=== PATIENT | female | born 2000 | race Caucasian/White ===

== ENCOUNTER 2018-08-21 20:40 | Emergency (ER) | payer MEDICAID ==
--- NOTE | 2018-08-21 21:05 | EDPHY ---
General Time Seen by Provider: 08/21/18 20:45 Narrative: CLINICAL IMPRESSION: Suicidal ideation ASSESSMENT/PLAN: Patient is a 18-year-old male who identifies is female with a significant history of chronic low back pain, depression, anxiety, nightmares who presents with suicidal ideation. Patient is afebrile and nontoxic-appearing, she is in no acute distress. Physical examination is unremarkable. CBC revealed no evidence of leukocytosis or anemia. Her vital signs were reviewed and no findings to suggest bacterial illness. Metabolic panel with no metabolic abnormalities or acute kidney injury. Tylenol, salicylate and alcohol negative. Drug screen negative. There were no clinical findings to suggest intoxication, organic etiology, metabolic abnormality or other toxidrome. The patient was formally evaluated by mental health in the emergency department. Patient has been currently been denied placement at [address] [place] [address], dispo is still pending at this time with plan for re-evaluation the morning. The patient remained hemodynamically stable under my care without physical complaint. This case was discussed with Dr. Hung who will resume care of this patient at this time. DIFFERENTIAL DX: Differential diagnosis including but not limited to and in no particular order depression, anxiety, calrke, intoxication, toxidrome, metabolic abnormality ED COURSE: 2004: Case discussed with Dr. Hung. 2344: Patient denied placement at [address] [place] [address]. 13: Case discussed with Dr. Hung, he will resume care of this patient at this time. CHIEF COMPLAINT: Suicidal ideation HPI: Patient is a 18-year-old male who identifies as female with a significant history of chronic low back pain, depression, anxiety, nightmares who presents with suicidal ideation. Patient was placed on an M1 hold by PD and brought here by ambulance. Patient reports a longstanding history of depression and anxiety, has been in the [place] area since last January. She is currently followed by [facility]. She reports being under a significant amount of stress, she "has had enough". She is currently about to lose her job , she states she is losing family and she is feeling very hopeless. Patient with a history of 5+ reported suicidal attempts in the past, she endorses 7 separate admissions to psychiatric facilities. Patient reports tonight that she stated that she would like to jump out into traffic to kill herself. She denies any physical complaints. PMH: Depression, anxiety, nightmares, chronic low back pain Pertinent Past Surgical History: Denies Family History: Noncontributory Social History: Denies illicit drug use, denies cigarette smoking, rare alcohol REVIEW OF SYSTEMS: All other systems negative Constitutional: No fever, no chills, appetite change. Eyes: No discharge, vision change ENT: No sore throat, congestion, ear pain. Cardiovascular: No chest pain, no palpitations. Respiratory: No cough, no shortness of breath. Gastrointestinal: No abdominal pain, no vomiting, diarrhea. Genitourinary: No hematuria, dysuria, flank pain, pelvic pain Musculoskeletal: Chronic low back pain, unchanged. No joint swelling, joint pain, myalgias. Skin: No rashes, color change. Neurological: No headache, dizziness, weakness. PHYSICAL EXAM: General Appearance: Well-appearing, no acute distress. HENT: Normocephalic, atraumatic. Bilateral external ears are normal. Bilateral tympanic membranes are normal with pearly bellamy reflex. Nares are clear, mucosa is pink. Oropharynx is clear, uvula is midline. There is no tonsillar enlargement or exudate. The dentition is normal. Eyes: PERRLA, no acute vision change, nystagmus, swelling, discharge, pain or photosensitivity. Conjunctiva pink, no pallor or injection Neck: Supple, nontender, no lymphadenopathy, no midline pain, FROM, no meningismus. Respiratory: There are no retractions, lungs are clear to auscultation. Cardiac: Regular rate and rhythm, no murmurs or gallops. Gastrointestinal: Abdomen is soft, nontender, bowel sounds normal, no masses/ hernia, no rigidity, guarding or focal peritoneal findings. Neurological: Alert and oriented x 3, CN 2-12 grossly intact, normal gait no ataxia, DTR's intact, normal sensation and strength Skin: Warm, dry, no rashes, no nodules on palpation. Musculoskeletal: Extremities are symmetrical, full range of motion, no tenderness, deformity, swelling, or erythema. Psychiatric: Patient is oriented X 3, there is no agitation, poor eye contact. MEDICAL DECISION MAKING: Patient was seen independently. Secondary supervising physician at time of evaluation was Dr. Hung. Diagnosis: Suicidal ideation. New, requires workup Summary: See Assessment and Plan for summary of ED visit Clinical lab tests: ordered / reviewed. Independent visualization of images, tracing, or specimens: Yes. Decision to obtain medical records or history from someone other than the patient: Yes, police Review / Summarize previous medical records: None available Discussed patient with another provider: Yes Patient Progress: Stable, dispo pending. (Elizabeth Cage) 0015 care assumed from [place] pending placement. 0700 patient signed out to Dr. Mulligan pending placement. No issues during my care this patient overnight. (Fam Hung) - Objective Vital Signs: Initial Vital Signs Temperature (C) 36.6 C 08/21/18 21:09 Heart Rate 75 08/21/18 21:09 Respiratory Rate 20 08/21/18 21:09 Blood Pressure 159/85 H 08/21/18 21:09 O2 Sat (%) 95 08/21/18 21:09 O2 Delivery Mode Room Air Allergies/Adverse Reactions: atropine Allergy (Severe, Verified 08/21/18 20:52) Home Medications: Medication Instructions Recorded Benztropine Mesylate 08/21/18 Montelukast Sodium 08/21/18 Prazosin HCl 2 mg PO 08/21/18 Risperidone 08/21/18 Laboratory Results: Laboratory Results 08/21/18 20:55 08/21/18 20:55 08/21/18 08/21/18 08/21/18 20:55 20:55 20:55 WBC 7.93 10^3/uL 10^3/uL (3.80-9.50) RBC 5.72 10^6/uL H 10^6/uL (4.18-5.33) Hgb 16.0 g/dL g/dL (12.6-16.3) Hct 47.4 % H % (38.0-47.0) MCV 82.9 fL fL (81.5-99.8) MCH 28.0 pg pg (27.9-34.1) MCHC 33.8 g/dL g/dL (32.4-36.7) RDW 13.0 % % (11.5-15.2) Plt Count 262 10^3/uL 10^3/uL (150-400) MPV 10.8 fL fL (8.7-11.7) Neut % (Auto) 51.2 % % (39.3-74.2) Lymph % (Auto) 33.3 % % (15.0-45.0) Briscoe % (Auto) 12.2 % % (4.5-13.0) Eos % (Auto) 2.6 % % (0.6-7.6) Baso % (Auto) 0.6 % % (0.3-1.7) Nucleat RBC Rel Count 0.0 % % (0.0-0.2) Absolute Neuts (auto) 4.05 10^3/uL 10^3/uL (1.70-6.50) Absolute Lymphs (auto) 2.64 10^3/uL 10^3/uL (1.00-3.00) Absolute Monos (auto) 0.97 10^3/uL H 10^3/uL (0.30-0.80) Absolute Eos (auto) 0.21 10^3/uL 10^3/uL (0.03-0.40) Absolute Basos (auto) 0.05 10^3/uL 10^3/uL (0.02-0.10) Absolute Nucleated RBC 0.00 10^3/uL 10^3/uL (0-0.01) Immature Gran % 0.1 % % (0.0-1.1) Immature Gran # 0.01 10^3/uL 10^3/uL (0.00-0.10) Sodium 142 mEq/L mEq/L (135-145) Potassium 4.5 mEq/L mEq/L (3.5-5.2) Chloride 108 mEq/L mEq/L (97-110) Carbon Dioxide 24 mEq/l mEq/l (22-31) Anion Gap 10 mEq/L mEq/L (6-14) BUN 13 mg/dL mg/dL (7-23) Creatinine 0.9 mg/dL mg/dL (0.6-1.0) Estimated GFR > 60 Glucose 89 mg/dL mg/dL (70-100) Calcium 9.8 mg/dL mg/dL (8.5-10.4) Salicylates < 1.0 mg/dL L mg/dL (2.0-20.0) Urine Opiates Screen NEGATIVE (NEGATIVE) Acetaminophen < 10 mcg/mL L mcg/mL (10-30) Urine Barbiturates NEGATIVE (NEGATIVE) Ur Phencyclidine Scrn NEGATIVE (NEGATIVE) Ur Amphetamine Screen NEGATIVE (NEGATIVE) U Benzodiazepines Scrn NEGATIVE (NEGATIVE) Urine Cocaine Screen NEGATIVE (NEGATIVE) U Marijuana (THC) Screen NEGATIVE (NEGATIVE) Ethyl Alcohol < 10 mg/dL mg/dL (0-10) ED Course Care Turn Over (time): 07:[address]:: Ese Discussion: Patient accepted at [facility] by Dr. Pineda. Appropriate paperwork completed. (Nancy Mulligan) Departure - Departure Referrals: [facility] [Other] - As per Instructions
[2018-08-21 21:22] LABS: PLATELET COUNT 262 10^3/uL (150-400)
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
[2018-08-22 09:58] VITALS: BP 130/76
== END 2018-08-22 09:57 ==
DX: R45.851 Suicidal ideations (principal); F32.9 Major depressive disorder, single episode, unspecified
CPT/HCPCS: 80305; G0480

== ENCOUNTER 2018-10-09 17:20 | Emergency (ER) | payer MEDICAID ==
--- NOTE | 2018-10-09 18:38 | EDPHY ---
H & P Time Seen by Provider: 10/09/18 18:35 HPI/ROS: CHIEF COMPLAINT: Abdominal pain HISTORY OF PRESENT ILLNESS: Patient is had abdominal pain for about the last week although for the last 3 days has been worse. Nausea and vomiting last night with a little bit of bright red blood. No diarrhea. Abdominal pain today is generalized around the umbilicus and worse with any movement. Decreased appetite. A little bit of a subjective fever and headache. No testicular symptoms. REVIEW OF SYSTEMS: Eye: no change in vision ENT: no sore throat Cardiac: no chest pain or syncope Pulmonary: no cough or SOB Abdomen: HPI Musculoskeletal: no back pain Skin: no rash Neuro: no headache Constitutional: HPI : no urinary symptoms. No dysuria or hematuria. A comprehensive 10 point review of systems is otherwise negative aside from elements mentioned in the history of present illness. PAST MEDICAL HISTORY: Depression and anxiety Social history: No recent alcohol, identifies as female gender. General Appearance: Alert and conversant, cooperative. Eyes: No scleral icterus. ENT, Mouth: Slightly dry mucous membranes. Respiratory: Normal respiratory effort, breath sounds equal, lungs are clear to auscultation. Cardiovascular: Regular rate and rhythm. Gastrointestinal: Right lower quadrant tenderness to palpation. No hernia, normal testicles. Normal scrotum. Neurological: Alert, face symmetric, normal motor and sensory in extremities. Skin: Warm and dry, no rashes. Musculoskeletal: No peripheral edema. Psychiatric: Not agitated. Emergency Department course/MDM: IV saline, Zofran 4, CT abdomen pelvis discussed and consented to evaluate for appendicitis with RLQ tenderness. Differential considered including but not limited to adenitis, gastroenteritis, bowel obstruction, torsion, UTI, renal colic 2024: Normal CT abdomen pelvis per Dr. Tiesha Piña. Results discussed with the patient, feels better, less pain and no vomiting, stable for discharge with precautions. Smoking Status: Never smoked Constitutional: Initial Vital Signs Temperature (C) 37.1 C 10/09/18 17:40 Heart Rate 66 10/09/18 17:40 Respiratory Rate 18 10/09/18 17:40 Blood Pressure 137/98 H 10/09/18 17:40 O2 Sat (%) 97 10/09/18 17:40 O2 Delivery Mode Room Air Allergies/Adverse Reactions: atropine Allergy (Severe, Verified 10/09/18 17:39) Home Medications: Medication Instructions Recorded Benztropine Mesylate 08/21/18 Montelukast Sodium 08/21/18 Prazosin HCl 2 mg PO 08/21/18 Risperidone 08/21/18 Medical Decision Making - Diagnostics Imaging Results: Imaging Impressions Abdomen CT 10/09/18 19:05 Impression: 1. No acute inflammation or significant abnormality in the abdomen and pelvis. 2. Constipation. 3. Follow up as clinically indicated. Findings and recommendations discussed with Ritchie Ceja M.D., at 8:25 p.m. on October 09, 2018. Final report concurs with initial preliminary interpretation. E:amm Imaging: Discussed imaging studies w/ body recall instructor Radiologist - Data Points Laboratory Results: Laboratory Results 10/09/18 18:53 10/09/18 18:53 10/09/18 10/09/18 10/09/18 18:59 18:53 18:53 WBC 10.86 10^3/uL H 10^3/uL (3.80-9.50) RBC 6.58 10^6/uL H 10^6/uL (4.18-5.33) Hgb 18.6 g/dL H g/dL (12.6-16.3) POC Hgb 19.7 gm/dL H gm/dL (12.6-16.3) Hct 55.4 % H % (38.0-47.0) POC Hct 58 % H % (38-47) MCV 84.2 fL fL (81.5-99.8) MCH 28.3 pg pg (27.9-34.1) MCHC 33.6 g/dL g/dL (32.4-36.7) RDW 13.5 % % (11.5-15.2) Plt Count 277 10^3/uL 10^3/uL (150-400) MPV 11.0 fL fL (8.7-11.7) Neut % (Auto) 72.3 % % (39.3-74.2) Lymph % (Auto) 15.7 % % (15.0-45.0) Jack % (Auto) 10.0 % % (4.5-13.0) Eos % (Auto) 1.1 % % (0.6-7.6) Baso % (Auto) 0.6 % % (0.3-1.7) Nucleat RBC Rel Count 0.0 % % (0.0-0.2) Absolute Neuts (auto) 7.85 10^3/uL H 10^3/uL (1.70-6.50) Absolute Lymphs (auto) 1.71 10^3/uL 10^3/uL (1.00-3.00) Absolute Monos (auto) 1.09 10^3/uL H 10^3/uL (0.30-0.80) Absolute Eos (auto) 0.12 10^3/uL 10^3/uL (0.03-0.40) Absolute Basos (auto) 0.06 10^3/uL 10^3/uL (0.02-0.10) Absolute Nucleated RBC 0.00 10^3/uL 10^3/uL (0-0.01) Immature Gran % 0.3 % % (0.0-1.1) Immature Gran # 0.03 10^3/uL 10^3/uL (0.00-0.10) POC Sodium 147 mEq/L H mEq/L (135-145) Sodium 142 mEq/L mEq/L (135-145) POC Potassium 3.9 mEq/L mEq/L (3.3-5.0) Potassium 4.3 mEq/L mEq/L (3.5-5.2) POC Chloride 102 mEq/L mEq/L (97-110) Chloride 103 mEq/L mEq/L (97-110) Carbon Dioxide 25 mEq/l mEq/l (22-31) POC Total CO2 26 mEq/L mEq/L (22-31) Anion Gap 14 mEq/L mEq/L (6-14) POC BUN 8 mg/dL mg/dL (7-23) BUN 10 mg/dL mg/dL (7-23) Creatinine 0.8 mg/dL mg/dL (0.6-1.0) POC Creatinine 0.8 mg/dL mg/dL (0.6-1.0) Estimated GFR > 60 Glucose 98 mg/dL mg/dL (70-100) POC Glucose 97 mg/dL mg/dL (70-100) Calcium 9.9 mg/dL mg/dL (8.5-10.4) Medications Given: Discontinued Medications Fentanyl (Sublimaze) 50 mcg IVP EDNOW ONE Stop: 10/09/18 18:46 Last Admin: 10/09/18 19:38 Dose: 50 mcg Sodium Chloride (Ns) 1,000 mls @ 0 mls/hr IV EDNOW ONE; Wide Open PRN Reason: Protocol Stop: 10/09/18 18:46 Last Admin: 10/09/18 19:37 Dose: 1,000 mls Ondansetron HCl (Zofran) 4 mg IVP EDNOW ONE Stop: 10/09/18 18:46 Last Admin: 10/09/18 19:37 Dose: 4 mg Ondansetron HCl (Zofran Odt 4 Mg Prepack#2) 1 btl TAKEHOME EDNOW ONE Stop: 10/09/18 20:38 Last Admin: 10/09/18 21:08 Dose: 1 btl Point of Care Test Results: Chemistry 10/09/18 18:59 POC Sodium 147 mEq/L H mEq/L (135-145) POC Potassium 3.9 mEq/L mEq/L (3.3-5.0) POC Chloride 102 mEq/L mEq/L (97-110) POC Total CO2 26 mEq/L mEq/L (22-31) POC BUN 8 mg/dL mg/dL (7-23) POC Creatinine 0.8 mg/dL mg/dL (0.6-1.0) POC Glucose 97 mg/dL mg/dL (70-100) ISTAT H&H 10/09/18 18:59 POC Hgb 19.7 gm/dL H gm/dL (12.6-16.3) POC Hct 58 % H % (38-47) Departure - Departure Disposition: Home, Routine, Self-Care Clinical Impression: Abdominal pain Qualifiers: Abdominal location: generalized Qualified Code(s): R10.84 - Generalized abdominal pain Nausea & vomiting Qualifiers: Vomiting type: unspecified Vomiting Intractability: non-intractable Qualified Code(s): R11.2 - Nausea with vomiting, unspecified Condition: Good Instructions: Ondansetron (By mouth), Acute Nausea and Vomiting (ED) Additional Instructions: You need to return to the emergency department immediately if you develop worsening or severe pain, fever, vomiting or you are not completely better in 8- 12 hours. Referrals: [facility],. [Clinic] - As per Instructions
[2018-10-09] MEDS ORDERED: ONDANSETRON 4 MG/2 ML VIAL IVP ONE (18:45)
[2018-10-09] MEDS ORDERED: NS 1,000 ML IV ONE (18:45)
[2018-10-09] MEDS ORDERED: fentaNYL 100 MCG/2 ML INJ IVP ONE (18:45)
[2018-10-09 19:01] LABS: PLATELET COUNT 277 10^3/uL (150-400)
[2018-10-09] MEDS ORDERED: IOPAMIDOL (ISOVUE-300) 100 ML BTL ONE (19:09)
[2018-10-09] MEDS ORDERED: ONDANSETRON 4MG PREPACK#2 BTL TAKEHOME ONE (20:37)
[2018-10-09 21:03] VITALS: BP 149/90
== END 2018-10-09 21:12 | disposition home or self-care (01) ==
DX: R10.33 Periumbilical pain (principal); R11.2 Nausea with vomiting, unspecified; E86.9 Volume depletion, unspecified
CPT/HCPCS: 82435-PO; 82565-PO; 82947-PO; 84132-PO; 84295-PO; 84520-PO; 85014-ER; 96374; J2405; J3010; Q9967